=== PATIENT | female | born 1980 | race Caucasian/White ===

== ENCOUNTER 2020-11-01 02:39 | Emergency (ER) | payer BC ==
[~2020-11-01] VITALS: Ht 157.5 cm; Wt 97.7 kg
--- NOTE | 2020-11-01 02:43 | PHYS DOC ---
Past History Past Surgical History: Past Surgical History Lap. post C- section - bleeding (TAYA MAYER MD) General Adult EDM: Chief Complaint: CHEST PAIN HPI: HPI: ".. It anthony all started ..or at least the bad pain about 9 or 9;30...giving my kids a bath.. here in my chest, epigastric..and Rt shoulder area.. It be some what constant,...but waxing and waning... Some nausea.... We did have some high fat food for celebration... 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 So it could be gallbladder.... 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 I did not even tell my family had come in to get checked out..." Patient is a 39 year old female from [facility] who presents with above hx and complaints of chest, right upper quadrant abdomen.and right shoulder pain. Pain reportedly started more intensely while on giving her children's bath tonight approximately 2100 hrs. Patient denies any trauma. Patient denies any specific ill contacts. Patient has had previous history of GERD and possible biliary colic. Patient has significant history of internal bleeding after a and development of pulmonary embolisms at that time.. Patient did have a vena cava filter for short time which was removed approxi-1 month afterwards at . doctors felt that her blood clots were due to the . There is a family history of gallbladder disease particularly grandmother and aunt. There is a family history of coronary artery disease on both sides grandfather grandmother in 80s to 90s. She is only child. No brothers and sisters. Patient denies any history of previous coronary artery disease in herself. Patient not normally hypertensive. Patient up-to-date with Covid vaccination Moderna x2 in August (TAYA MAYER MD) Review of Systems: Review of Systems: Constitutional: Denies fever or chills Eyes: Denies change in visual acuity HENT: Denies nasal congestion or sore throat Respiratory: Denies cough or shortness of breath Cardiovascular: Complains of right shoulder chest pain GI: Planes of right upper quadrant abdominal pain, nausea. Denies, vomiting, bloody stools or diarrhea . Has had some tarry looking stools. : Denies dysuria Musculoskeletal: Denies back pain or joint pain Integument: Denies rash Neurologic: Denies headache, focal weakness or sensory changes Endocrine: Denies polyuria or polydipsia Lymphatic: Denies swollen glands Psychiatric: Complains she is anxious about current symptoms (TAYA MAYER MD) Family History: Family History: Coronary artery disease grandparents both sides. There is family history of gallbladder disease with grandmother and aunt (TAYA MAYER MD) Current Medications: Current Meds: See nursing for home meds (TAYA MAYER MD) Allergies: Allergies: Allergic to sulfa, Rocephin and doxycycline (TAYA MAYER MD) Physical Exam: PE: Constitutional: Moderate acute distress, non-toxic appearance. [] HENT: Normocephalic, atraumatic, bilateral external ears normal, oropharynx moist, no oral exudates, nose normal. [] Eyes: PERRLA, EOMI, conjunctiva normal, no discharge. Blue Neck: Normal range of motion, no tenderness, supple, no stridor. [] Cardiovascular: Tachycardia heart rate regular rhythm, no murmur [] Lungs & Thorax: Bilateral breath sounds "apex on auscultation [] Abdomen: Bowel sounds decreased, soft, gastric and right upper quadrant tenderness, no masses, no pulsatile masses. Hemorrhoids. Small rectal fissure. No gross blood. Old surgical scar lower abdomen Skin: Warm, dry, no erythema, no rash. [] Back: No tenderness, no CVA tenderness. [] Mild kyphosis and scoliosis Extremities: No tenderness, no cyanosis, no clubbing, ROM intact, no edema. No cording appreciated Neurologic: Alert and oriented X 3, moves extremities on request, has distal sensory, no focal deficits noted. [] Psychologic: Affect anxious, judgement normal, mood normal. [] (TAYA MAYER MD) EKG: EKG: My interpretation EKG shows a sinus tachycardia 105 bpm no acute morphology EKG is at 247 hours [] (TAYA MAYER MD) Radiology/Procedures: Radiology/Procedures: [address] [address] IMAGING REPORT Signed PATIENT: AGUSTÍN SUE ACCOUNT: [id number] : 1980 LOCATION: ER AGE: 39 SEX: F EXAM STATUS: REG ER ORD. PHYSICIAN: TAYA MAYER MD REASON: OMNI 300,75ML IV.OMNI 240,15ML PO.Chest/Upper Abd pain PROCEDURE: CT CHEST ABDOMEN W/CONTRAST INDICATION: Reason: OMNI 300,75ML IV.OMNI 240,15ML PO.Chest/Upper Abd pain / S pl. Instructions: / History: . COMPARISON: None. TECHNIQUE: Axial CT images obtained through the abdomen and pelvis with contrast. One or more of the following individualized dose reduction techniques were utilized for this examination: 1. Automated exposure control; 2. Adjustment of the mA and/or kV according to patient size; 3. Use of iterative reconstruction technique. FINDINGS: Chest: No evidence of pneumothorax. No focal airspace consolidation to suggest pneumonia. Ascending thoracic aorta is partially obscured secondary to motion. No aneurysm or dissection flap in visualized portions of thoracic aorta. Suspected thyroid nodule. Degenerative changes of the spine. There is some scoliotic curvature the spine. ABDOMEN: Abdominal aorta not aneurysmal. Partial visualization of low-density lesion in the left adnexa measuring at least 32 mm but only partially seen. Prominent lymph nodes are seen including within the retroperitoneum for example right periaortic region measuring 10 mm short axis. Liver is low density. Nonspecific but can be seen with fatty infiltration. No peripancreatic fluid collection. Spleen unremarkable. Low-density lesion upper pole the right kidney which may be cystic in nature but too small to characterize. Appendix does not appear dilated. No dilated loops of bowel within the abdomen to suggest obstruction. Degenerative changes the spine with scoliotic curvature and multilevel central canal and neural foraminal stenosis. Mild wedging of some of the thoracic vertebral bodies including T7. Mild kyphosis. IMPRESSION: * No focal airspace consolidation or pneumothorax. * Suspected thyroid nodule. * Partial visualization of low-density lesion in the left adnexa. Incompletely characterized but if further evaluation is desired pelvic ultrasound could further assess. * No evidence of bowel obstruction or appendicitis. Electronically signed by: Tray Sykes MD (11/01/2020 6:27 AM) [id number] DICTATED AND SIGNED BY: TRAY SYKES MD DATE: 11/01/20610 CC: TAYA MAYER MD; NON,STAFF ~MTH0 0 [][place] [address] IMAGING REPORT Signed PATIENT: AGUSTÍN SUE ACCOUNT: [id number] : 1980 LOCATION: ER AGE: 39 SEX: F EXAM STATUS: REG ER ORD. PHYSICIAN: TAYA MAYER MD REASON: C[P PROCEDURE: CHEST PA & LATERAL INDICATION: Reason: C[P / Spl. Instructions: / History: COMPARISON: None. FINDINGS: 2 view of chest obtained. Degenerative changes of the spine. Linear opacity left lung base. Cardiac silhouette unremarkable. IMPRESSION: * Linear opacity at the left lung base which could be from scarring or atelectasis. Electronically signed by: Tray Sykes MD (11/01/2020 3:25 AM) [employer] [id number] DICTATED AND SIGNED BY: TRAY SYKES MD DATE: 11/01/20 0324 CC: TAYA MAYER MD; MARIELLA GONZALEZ MD ~MTH0 0 (TAYA MAYER MD) Heart Score: C/O Chest Pain: Yes HEART Score for Chest Pain: HEART Score for Chest Pain Response (Comments) Value History Slighlty/Non-Suspicious 0 ECG Normal 0 Age < 45 0 Risk Factors No Risk Factors 0 Troponin < Normal Limit 0 Total 0 Risk Factors: Risk Factors: DM, Current or recent (<one month) smoker, HTN, HLP, family history of CAD, obesity. Risk Scores: Score 0 - 3: 2.5% MACE over next 6 weeks - Discharge Home Score 4 - 6: 20.3% MACE over next 6 weeks - Admit for Clinical Observation Score 7 - 10: 72.7% MACE over next 6 weeks - Early Invasive Strategies (TAYA MAYER MD) Course & Med Decision Making: Course & Med Decision Making Pertinent Labs and Imaging studies reviewed. (See chart for details) Suspect chest pain is related to biliary colic. No acute surgical pathology noted on CT tonight. Will follow normal troponin and D-dimer feel it is unlikely this is related coagulopathy or VT. Patient take Pepcid 20 mg twice a day. Follow-up primary care. Return if any concerns. Tylenol and ibuprofen for pain. Impression: 1. Chest Pain 2. Accelerated HTN 3. Biliary colic [] (TAYA MAYER MD) Course & Med Decision Making The patient's second troponin is negative. Her second EKG was unremarkable. She is stable for discharge at this time. (SHARONDA ARANA DO) Dragon Disclaimer: Dragon Disclaimer: This electronic medical record was generated, in whole or in part, using a voice recognition dictation system. (TAYA MAYER MD) Departure Departure: Impression: Primary Impression: Chest pain Qualified Codes: R07.9 - Chest pain, unspecified Disposition: HOME / SELF CARE / HOMELESS Condition: STABLE Referrals: MARIELLA GONZALEZ MD (PCP) Patient Instructions: Chest Pain (Nonspecific), [id number] Scripts Famotidine (PEPCID) 20 Mg Tablet 20 MG PO BID for colic, #60 TAB Prov: TAYA MAYER MD 11/01/20 Dragon Disclaimer This chart was dictated in whole or in part using Voice Recognition software in a busy, high-work load, and often noisy Emergency Department environment. It may contain unintended and wholly unrecognized errors or omissions. (TAYA MAYER MD) TAYA MAYER MD November 01, 2020 02:43 SHARONDA ARANA DO November 01, 2020 07:52
[2020-11-01 02:45] VITALS: BP 180/104
[2020-11-01] MEDS: IV RINGERS SOLUTION,LACTATED 1,000 ML IV SCH (03:01)
[2020-11-01] MEDS: ASPIRIN CHEWABLE 81 MG TABLET. PO ONE (03:01)
--- NOTE | 2020-11-01 03:28 | RAD ---
INDICATION: Reason: C[P / Spl. Instructions: / History: COMPARISON: None. FINDINGS: 2 view of chest obtained. Degenerative changes of the spine. Linear opacity left lung base. Cardiac silhouette unremarkable. IMPRESSION: * Linear opacity at the left lung base which could be from scarring or atelectasis. Electronically signed by: Tre Gonzalez MD (11/01/2020 3:25 AM) [id number]
[2020-11-01] MEDS ORDERED: ONDANSETRON PF 4 MG/2 ML VIAL. ONE (03:30)
[2020-11-01] MEDS ORDERED: FAMOTIDINE 20 MG/2 ML VIAL ONE (03:30)
[2020-11-01 03:37] LABS: BASO # 0.1 x10^3/uL (0.0-0.2); BASO % 1 % (0-3); EOS # 0.2 x10^3/uL (0.0-0.7); EOS % 4 % (0-3); HEMATOCRIT 42.5 % (36.0-47.0); HEMOGLOBIN 14.2 g/dL (12.0-15.5); LYMPH # 2.5 x10^3/uL (1.0-4.8); LYMPH % 41 % (24-48); MEAN CORPUSCULAR HEMOGLOBIN 29 pg (25-35); MEAN CORPUSCULAR HGB CONC 33 g/dL (31-37); MEAN CORPUSCULAR VOLUME 85 fL (79-100); MONO # 0.5 x10^3/uL (0.0-1.1); MONO % 9 % (0-9); NEUT # 2.8 x10^3uL (1.8-7.7); NEUT % 46 % (31-73); PLATELET COUNT 252 x10^3/uL (140-400); RED BLOOD COUNT 4.98 x10^6/uL (3.50-5.40); RED CELL DISTRIBUTION WIDTH 14.7 % (11.5-14.5); WHITE BLOOD COUNT 6.2 x10^3/uL (4.0-11.0)
[2020-11-01] MEDS: ONDANSETRON PF 4 MG/2 ML VIAL. IVP ONE (03:41)
[2020-11-01] MEDS: FAMOTIDINE 20 MG/2 ML VIAL IVP ONE (03:41)
--- NOTE | 2020-11-01 04:01 | EKG ---
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
[2020-11-01] MEDS ORDERED: IOHEXOL 240 MG/ML 50ML VIAL. ONE (04:39)
[2020-11-01] MEDS ORDERED: CONTRAST GIVEN. MC PRN (04:45)
[2020-11-01] MEDS: IOHEXOL 300 MG/ML 75 ML VIAL. IV ONE (05:29)
[2020-11-01 05:50] LABS: ALBUMIN 3.8 g/dL (3.4-5.0); ALK PHOS 53 U/L (46-116); ALT (SGPT) 39 U/L (14-59); ANION GAP 10 (6-14); AST (SGOT) 21 U/L (15-37); BLOOD UREA NITROGEN 18 mg/dL (7-20); CARBON DIOXIDE 26 mmol/L (21-32); CHLORIDE 105 mmol/L (98-107); CREATININE 0.6 mg/dL (0.6-1.0); GFR 111.9; GLUCOSE 105 mg/dL (70-99); LIPASE 129 U/L (73-393); MAGNESIUM 1.9 mg/dL (1.8-2.4); POTASSIUM 4.2 mmol/L (3.5-5.1); SODIUM 141 mmol/L (136-145); TOTAL BILIRUBIN 0.1 mg/dL (0.2-1.0); TOTAL PROTEIN 7.1 g/dL (6.4-8.2)
[2020-11-01 05:51] LABS: DIRECT BILIRUBIN < 0.1 mg/dL (0.0-0.2)
[2020-11-01 05:57] LABS: BACTERIA,URINE 0 /HPF (0-FEW); BILIRUBIN,URINE NEG (NEG); CLARITY,URINE CLEAR; COLOR,URINE YELLOW; GLUCOSE,URINE NEG (NEG); NITRITE,URINE NEG (NEG); RBC,URINE 0 /HPF (0-2); SQUAMOUS EPITHELIAL CELL,UR OCC /LPF; UROBILINOGEN,URINE 0.2 mg/dL (0.2 mg/dL); WBC,URINE 0 /HPF (0-4)
--- NOTE | 2020-11-01 06:29 | RAD ---
INDICATION: Reason: OMNI 300,75ML IV.OMNI 240,15ML PO.Chest/Upper Abd pain / Spl. Instructions: / Hi story: . COMPARISON: None. TECHNIQUE: Axial CT images obtained through the abdomen and pelvis with contrast. One or more of the following individualized dose reduction techniques were utilized for this examinat ion: 1. Automated exposure control; 2. Adjustment of the mA and/or kV according to patient size; 3 . Use of iterative reconstruction technique. FINDINGS: Chest: No evidence of pneumothorax. No focal airspace consolidation to suggest pneumonia. Ascending thoracic aorta is partially obscured secondary to motion. No aneurysm or dissection flap in visualized portions of thoracic aorta. Suspected thyroid nodule. Degenerative changes of the spine. There is some scoliotic curvature the spine. ABDOMEN: Abdominal aorta not aneurysmal. Partial visualization of low-density lesion in the left adnexa measuring at least 32 mm but only part ially seen. Prominent lymph nodes are seen including within the retroperitoneum for example right periaortic boy on measuring 10 mm short axis. Liver is low density. Nonspecific but can be seen with fatty infiltration. No peripancreatic fluid collection. Spleen unremarkable. Low-density lesion upper pole the right kidney which may be cystic in nature but too small to charact erize. Appendix does not appear dilated. No dilated loops of bowel within the abdomen to suggest obstruction. Degenerative changes the spine with scoliotic curvature and multilevel central canal and neural crys inal stenosis. Mild wedging of some of the thoracic vertebral bodies including T7. Mild kyphosis. IMPRESSION: * No focal airspace consolidation or pneumothorax. * Suspected thyroid nodule. * Partial visualization of low-density lesion in the left adnexa. Incompletely characterized but if further evaluation is desired pelvic ultrasound could further assess. * No evidence of bowel obstruction or appendicitis. Electronically signed by: Tre Gonzalez MD (11/01/2020 6:27 AM) [id number]
[2020-11-01] MEDS ORDERED: FAMO-63 PO (06:45)
[2020-11-01] MEDS: KETOROLAC 30 MG/ML VIAL. IVP ONE (06:59)
--- NOTE | 2020-11-01 07:24 | EKG ---
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
[2020-11-01 19:43] LABS: THYROID STIM HORMONE (TSH) 1.421 uIU/mL (0.358-3.740)
== END 2020-11-01 08:04 | disposition home or self-care (01) ==
LOC: ER 02:39
DX: K80.50 Calculus of bile duct without cholangitis or cholecystitis without obstruction (principal); R07.89 Other chest pain; M25.511 Pain in right shoulder; I10 Essential (primary) hypertension
CPT/HCPCS: 36415; 71046; 71260; 74160; 80048; 80061; 80076; 81001; 82550; 83690; 83735; 84443; 84484; 85025; 85379; 85610; 85730; 93005; 96361; 96374; 96375; 99285; J1885; J2405; J3490; J7120; Q9967

== ENCOUNTER 2021-06-15 16:29 | Emergency (ER) | payer BC ==
[~2021-06-15] VITALS: Ht 157.5 cm; Wt 101.3 kg
[2021-06-15 16:29] VITALS: BP 155/104
[~2021-06-15 16:29] MED LIST: FAMO-63 PO
[2021-06-15] MEDS ORDERED: ONDANSETRON PF 4 MG/2 ML VIAL. IVP ONE (16:45)
[2021-06-15] MEDS ORDERED: IV NORMAL SALINE 1,000ML 1,000 ML IV ONE (16:45)
--- NOTE | 2021-06-15 17:04 | PHYS DOC ---
Past History Past Medical History: Other Additional Past Medical Histor: back injury L4-L5, hemmhorage with , PID,hemorrhoids,anal fissure (SHARONDA ARANA DO) Past Surgical History: Additional Past Surgical Histo: hemmhorage repair (SHARONDA ARANA DO) Alcohol Use: None (SHARONDA ARANA DO) General Adult EDM: Chief Complaint: DIARRHEA HPI: HPI: 40-year-old female presents with chills, fatigue, body aches, diarrhea. The patient was recently diagnosed with an otitis media and did a round of amoxicillin and then azithromycin. She took the last azithromycin yesterday. Patient presents today because she feels feverish. For last few days she has developed intense fatigue and generalized body aches. She had a Covid PCR test 4 days ago that was negative. She is fully vaccinated against COVID-19. 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 The patient had a large bowel movement today and then had a watery stool later. (SHARONDA ARANA DO) Review of Systems: Review of Systems: Constitutional: Chills, body aches, fatigue Eyes: Denies change in visual acuity HENT: sore throat Respiratory: shortness of breath Cardiovascular: Denies chest pain or edema GI: Diarrhea. Denies abdominal pain, nausea, vomiting, bloody stools. : Denies dysuria Musculoskeletal: Denies back pain or joint pain Integument: Denies rash Neurologic: Denies headache, focal weakness or sensory changes Endocrine: Denies polyuria or polydipsia Lymphatic: Denies swollen glands Psychiatric: Denies depression or anxiety (SHARONDA ARANA DO) Current Medications: Current Meds: Current Medications Medications (Trade) Dose Ordered Sig/Govind Start Time Stop Time Status Last Admin Dose Admin Ondansetron HCl (Zofran) 4 mg 1X ONCE 06/15/21 16:45 06/15/21 16:59 DC Sodium Chloride 1,000 ml @ 1,000 mls/hr 1X ONCE 06/15/21 16:45 06/15/21 17:44 (SHARONDA ARANA DO) Allergies: Allergies: Allergies Coded Allergies Type Severity Reaction Last Updated Verified Sulfa (Sulfonamide Antibiotics) Allergy Severe 11/01/20 Yes ceftriaxone Allergy Severe Anaphylaxis 11/01/20 Yes doxycycline Allergy Intermediate 11/01/20 Yes (SHARONDA ARANA DO) Physical Exam: PE: Constitutional: Well developed, well nourished, morbidly obese, no acute distress, non-toxic appearance. [] HENT: Normocephalic, atraumatic, bilateral external ears normal, oropharynx moist, no oral exudates, nose normal. [] Eyes: PERRLA, EOMI, conjunctiva normal, no discharge. [] Neck: Normal range of motion, no tenderness, supple, no stridor. [] Cardiovascular:Heart rate regular rhythm, no murmur [] Lungs & Thorax: Bilateral breath sounds clear to auscultation [] Abdomen: Bowel sounds normal, soft, no tenderness, no masses, no pulsatile masses. [] Skin: Warm, dry, no erythema, no rash. [] Back: No tenderness, no CVA tenderness. [] Extremities: No tenderness, no cyanosis, no clubbing, ROM intact, no edema. [] Neurologic: Alert and oriented X 3, normal motor function, normal sensory function, no focal deficits noted. [] Psychologic: Affect normal, judgement normal, mood normal. [] (SHARONDA ARANA DO) Current Patient Data: Vital Signs: Vital Signs Date Time Temp Pulse Resp B/P (MAP) Pulse Ox O2 Delivery O2 Flow Rate FiO2 06/15/21 16:29 98.9 86 18 155/104 (121) 100 Room Air (SHARONDA ARANA DO) EKG: EKG: Sinus rhythm, rate 91, normal axis, no ST elevation or depression. [] (SHARONDA ARANA DO) Radiology/Procedures: Radiology/Procedures: [] Impressions: AP chest. HISTORY: Short of breath, fever AP view was taken of the chest. Heart is normal in size. The patient's not taken a deep inspiration. There are no confluent infiltrates. There is no effusion. IMPRESSION: 1. No acute infiltrates. Electronically signed by: Rosas Douglas MD (06/15/2021 5:17 PM) [facility] DICTATED AND SIGNED BY: ROSAS DOUGLAS MD DATE: 06/15/211716 CC: SHARONDA ARANA DO; PCP,UNKNOWN ~MTH0 0 (SHARONDA ARANA DO) Radiology/Procedures: [address] [address] IMAGING REPORT Signed PATIENT: AGUSTÍN SUE ACCOUNT: [id number] : 1980 LOCATION: ER AGE: 40 SEX: F EXAM STATUS: REG ER ORD. PHYSICIAN: SHARONDA ARANA DO REASON: SOB, fever PROCEDURE: CHEST AP ONLY AP chest. HISTORY: Short of breath, fever AP view was taken of the chest. Heart is normal in size. The patient's not taken a deep inspiration. There are no confluent infiltrates. There is no effusion. IMPRESSION: 1. No acute infiltrates. Electronically signed by: Rosas Douglas MD (06/15/2021 5:17 PM) [facility] DICTATED AND SIGNED BY: ROSAS DOUGLAS MD DATE: 06/15/211716 CC: SHARONDA ARANA DO; PCP,UNKNOWN ~MTH0 0 (TAYA SPIVEY MD) Heart Score: C/O Chest Pain: No Risk Factors: Risk Factors: DM, Current or recent (<one month) smoker, HTN, HLP, family history of CAD, obesity. Risk Scores: Score 0 - 3: 2.5% MACE over next 6 weeks - Discharge Home Score 4 - 6: 20.3% MACE over next 6 weeks - Admit for Clinical Observation Score 7 - 10: 72.7% MACE over next 6 weeks - Early Invasive Strategies (SHARONDA ARANA DO) Course & Med Decision Making: Course & Med Decision Making Pertinent Labs and Imaging studies reviewed. (See chart for details) Patient's EKG is unremarkable. Her chest x-ray is negative for acute findings. The rest of the patient's work-up is pending at this time. I am signing the patient out to Dr. Spivey at 1800. [] (SHARONDA ARANA DO) Course & Med Decision Making See Dr. Arana chart for details prior shift change. Patient remain on clear fluid diet only for the next 48 hours. No solids. No milk products. Clear fluids only. Push fluids such as apple juice grape juice, Pedialyte, Gatorade, sweet tea, popsicles etc. Tylenol and ibuprofen for pain. May take Pepcid 20 mg at day for the GERD complaints. May take Zofran 8 mg at 4 times a day for active nausea and vomiting. For marked cramping and discomfort may take a Percocet up to 4 times a day. Follow-up PCR for Covid. Appears she has an acute gastroenteritis. But most entertain the diagnosis of C. difficile since she is recently on a course of antibiotics for ear infection. This diagnosis will need to be pursued if continued issues. Currently patient has been in ED 3 hrs. with out diarrhea stool. Impression: 1. Fever, Chills, malaise, myalgia, Diarrhea 2. Acute gastroenteritis 3. Viral syndrome (TAYA SPIVEY MD) Dragon Disclaimer: Dragon Disclaimer: This electronic medical record was generated, in whole or in part, using a voice recognition dictation system. (SHARONDA ARANA DO) Departure Departure: Referrals: PCP,UNKNOWN (PCP) Scripts Oxycodone Hcl/Acetaminophen (PERCOCET 5-325 MG TABLET ) 1 Each Tablet 1 TAB PO PRN Q6HRS PRN for PAIN, #30 TAB Prov: TAYA SPIVEY MD 06/15/21 Famotidine (PEPCID) 20 Mg Tablet 20 MG PO BID for gerd complaints for 30 Days, #60 TAB Prov: TAYA SPIVEY MD 06/15/21 Ondansetron Hcl (ZOFRAN) 4 Mg Tablet 8 MG PO QIDPRN for nv, #30 TAB Prov: TAYA SPIVEY MD 06/15/21 SHARONDA ARANA DO Jun 15, 2021 17:04 TAYA SPIVEY MD Jun 15, 2021 18:15
--- NOTE | 2021-06-15 17:20 | RAD ---
AP chest. HISTORY: Short of breath, fever AP view was taken of the chest. Heart is normal in size. The patient's not taken a deep inspiration. There are no confluent infiltrates. There is no effusion. IMPRESSION: 1. No acute infiltrates. Electronically signed by: Rosas Douglas MD (06/15/2021 5:17 PM) [facility]
[2021-06-15 18:03] LABS: BASO % 1 % (0-3); EOS % 0 % (0-3); HEMATOCRIT 42.6 % (36.0-47.0); HEMOGLOBIN 14.1 g/dL (12.0-15.5); LYMPH # 1.8 x10^3/uL (1.0-4.8); LYMPH % 24 % (24-48); MEAN CORPUSCULAR HEMOGLOBIN 29 pg (25-35); MEAN CORPUSCULAR HGB CONC 33 g/dL (31-37); MEAN CORPUSCULAR VOLUME 86 fL (79-100); MONO # 0.8 x10^3/uL (0.0-1.1); MONO % 10 % (0-9); NEUT # 5.1 x10^3uL (1.8-7.7); NEUT % 65 % (31-73); PLATELET COUNT 214 x10^3/uL (140-400); RED BLOOD COUNT 4.94 x10^6/uL (3.50-5.40); WHITE BLOOD COUNT 7.8 x10^3/uL (4.0-11.0)
[2021-06-15 18:13] LABS: INFLUENZA A PATIENT NEGATIVE (NEGATIVE); INFLUENZA B PATIENT NEGATIVE (NEGATIVE)
[2021-06-15 18:14] LABS: CALCIUM 8.9 mg/dL (8.5-10.1); CREATININE 0.7 mg/dL (0.6-1.0); GFR 93.2; POTASSIUM 3.9 mmol/L (3.5-5.1)
[2021-06-15 18:19] LABS: ALBUMIN/GLOBULIN RATIO 1.1 (1.0-1.7); TOTAL BILIRUBIN 0.2 mg/dL (0.2-1.0); TOTAL PROTEIN 7.6 g/dL (6.4-8.2)
[2021-06-15 18:58] LABS: CLARITY,URINE HAZY; COLOR,URINE YELLOW
[2021-06-15 18:59] LABS: BACTERIA,URINE 0 /HPF (0-FEW); BILIRUBIN,URINE NEG (NEG); GLUCOSE,URINE NEG (NEG); NITRITE,URINE NEG (NEG); RBC,URINE 20-40 /HPF (0-2); SQUAMOUS EPITHELIAL CELL,UR MOD /LPF; UROBILINOGEN,URINE 0.2 mg/dL (0.2 mg/dL); WBC,URINE RARE /HPF (0-4)
[2021-06-15] MEDS ORDERED: FAMO-63 PO (19:26)
[2021-06-15] MEDS ORDERED: ONDA4TAB7 PO (19:26)
[2021-06-15] MEDS ORDERED: OXYC-325 PO (19:26)
[2021-06-15] MEDS ORDERED: OXYC1TAB15 PO (19:29)
--- NOTE | 2021-06-15 19:38 | EKG ---
[address] [address] Test Date: 2021-06-15 Test Time: 17:12:28 Pat Name: AGUSTÍN SUE Department: Room: Gender: F Breakdown Person: GERALD : 1980 Requested By: SHARONDA ARANA Order Number: [id number] Reading MD: Measurements Intervals [place] Rate: 91 P: 26 AR: 150 QRS: 12 QRSD: 84 T: 14 QT: 358 QTc: 442 Interpretive Statements SINUS RHYTHM NORMAL ECG RI6.02 No previous ECG available for comparison
== END 2021-06-15 20:42 | disposition home or self-care (01) ==
LOC: ER 16:29
DX: K52.9 Noninfective gastroenteritis and colitis, unspecified (principal); B34.9 Viral infection, unspecified; Z20.822 Contact with and (suspected) exposure to COVID-19; Z98.890 Other specified postprocedural states; Z88.2 Allergy status to sulfonamides; Z88.1 Allergy status to other antibiotic agents
CPT/HCPCS: 36415; 71045; 80053; 81001; 84484; 85025; 85379; 87070; 87426; 87804; 87880; 93005; 96361; 96374; 99285; C9803; J2405; J7030; U0003